=== PATIENT | male | born 1975 | race Caucasian/White ===

== ENCOUNTER → 2016-10-09 | Outpatient (CLI) | payer OTHER ==
[~2016-10-09] MED LIST: ASPI-390 PO; ATV5X PO; CHOL20009 PO; DULO60CA44 PO; RIZA1TAB11 PO
--- NOTE | 2016-10-09 08:31 | DIAGNOSTIC IMAGING REPORT ---
LEFT RIBS UNILATERAL WITH PA CHEST CLINICAL HISTORY: W19.XXXA Accidental [id number] trauma COMPARISON STUDY: None FINDINGS: Nondisplaced cortical fracture anterior left 10th rib. All remaining ribs are unremarkable. Lungs are clear. No evidence pneumothorax. IMPRESSION: Nondisplaced cortical fracture left 10th rib. The above report was generated using voice recognition software. It may contain grammatical, syntax or spelling errors. Electronically signed by: Gautam Moeller M.D. 10/09/2016 8:30 AM Dictated Date/Time: 10/09/2016 8:28 AM
== END | disposition home or self-care (01) ==
LOC: C.RAD 07:50
PROVIDERS: ATTEND Nurse Practitioner
DX: S22.32XA Fracture of one rib, left side, initial encounter for closed fracture (principal); W19.XXXA Unspecified fall, initial encounter

== ENCOUNTER → 2017-04-11 | Outpatient (CLI) | payer OTHER | END | disposition home or self-care (01) | LOC: C.LABSPEC 08:19 | PROVIDERS: ATTEND Nurse Practitioner | DX: J01.00 Acute maxillary sinusitis, unspecified (principal) ==